=== PATIENT | male | born 1990 | race Caucasian/White ===

== ENCOUNTER 2024-09-03 00:30 | Emergency (ER) | payer OTHER, SELFPAY ==
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
[2024-09-04] VITALS (7 sets, daily range): BP systolic 115–136; BP diastolic 53–82; PULSE 83–134; RESP 15–16; TEMP 36.6–36.9; O2SAT 95–98; BMI 24.5
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
[2024-09-04] MEDS: Ondansetron ODT 4 MG TAB.RAPDIS TRANSLINGU (04:29)
[2024-09-04] MEDS: Amoxicillin/Potassium Clav 875 MG TABLET PO (04:29)
[2024-09-04] MEDS: Diphth,Pertus(ACell),Tet Adult 0.5 ML SYRINGE IM (04:31)
[2024-09-04] MEDS: oxyCODONE HCl Immed Release 5 MG TABLET 10 MG PO (05:00)
[2024-09-04] MEDS: LORazepam 1 MG TABLET PO (06:55)
[2024-09-04] MEDS: Nicotine 21 MG PATCH.TD24 TRANSDERMA (06:55)
[2024-09-04] MEDS: Morphine Sulfate Immed Release 15 MG TABLET PO (06:55)
--- NOTE | 2024-09-04 07:22 | PC.NURSE ---
Telephone verbal report given to [facility]. [phone].
== END 2024-09-04 08:23 | disposition short-term general hospital (02) ==
PROVIDERS: Emergency Provider Internal Medicine
DX: S02.32XA Fracture of orbital floor, left side, initial encounter for closed fracture (principal); S02.2XXA Fracture of nasal bones, initial encounter for closed fracture; Y04.2XXA Assault by strike against or bumped into by another person, initial encounter; Y93.9 Activity, unspecified; Y92.410 Unspecified street and highway as the place of occurrence of the external cause; Y99.9 Unspecified external cause status; Z23 Encounter for immunization
CPT/HCPCS: 70450; 70486; 72125; 90471; 90715; 99285